=== PATIENT | male | born 1955 | race Caucasian/White ===

== ENCOUNTER 2017-05-31 07:01 | Day surgery (SDC) | payer BC ==
[~2017-05-31] VITALS: Ht 175.3 cm; Wt 89.1 kg
[2017-05-31] VITALS (7 sets, daily range): BP systolic 123–144; BP diastolic 61–80; PULSE 40–60; TEMP 97.9–98
[~2017-05-31 07:01] MED LIST: ASPIRIN E.C. 8181 MG PO; LIPITOR80 MG PO; LISINOPRIL5 MG PO; LOPRESSOR50 MG PO; NO HOME MEDICATIONS; NORCO 325 MG-7.1 TAB PO; OXYCONTIN 20MG20 MG PO; PLAVIX 75MG TAB75 MG PO; PRAVACHOL80 MG PO; ROXICODONE 55 MG/TAB; ROXICODONE 55 MG/TAB PO; RYBIX ODT50 MG PO; TOPROL XL 50MG50 MG PO; ZITHROMAX 250M250 MG PO
[2017-05-31] MEDS ORDERED: PERCOCET 325 MG1 TA2 PO (11:27)
[2017-05-31] MEDS ORDERED: COLACE 100100 MG/CAP PO (11:27)
== END 2017-05-31 14:20 | disposition home or self-care (01) ==
LOC: SDCO 07:01
DX: K40.90 Unilateral inguinal hernia, without obstruction or gangrene, not specified as recurrent (principal); G89.4 Chronic pain syndrome; Z80.8 Family history of malignant neoplasm of other organs or systems; I25.10 Atherosclerotic heart disease of native coronary artery without angina pectoris; G47.33 Obstructive sleep apnea (adult) (pediatric); G47.00 Insomnia, unspecified; Z98.84 Bariatric surgery status; I25.2 Old myocardial infarction
CPT/HCPCS: C1781; J0690; J2250; J2704; J7120

== ENCOUNTER 2017-09-03 20:28 | Emergency (ER) | payer OTHER ==
[~2017-09-03] VITALS: Ht 175.3 cm; Wt 85.9 kg
[~2017-09-03 20:28] MED LIST changes: +COLACE 100100 MG/CAP PO; +PERCOCET 325 MG1 TA2 PO
[2017-09-03 20:29] VITALS: BP 120/58; TEMP 97.8
[2017-09-03 21:24] VITALS: PULSE 48
== END 2017-09-03 21:24 | disposition home or self-care (01) ==
LOC: COL.ER 20:28
DX: S80.11XA Contusion of right lower leg, initial encounter (principal); Z79.82 Long term (current) use of aspirin; W18.09XA Striking against other object with subsequent fall, initial encounter; W22.8XXA Striking against or struck by other objects, initial encounter; Y92.833 Campsite as the place of occurrence of the external cause